=== PATIENT | male | born 1980 | race Caucasian/White ===

== ENCOUNTER 2017-04-13 18:34 | Emergency (ER) | payer OTHER ==
--- NOTE | 2017-04-13 19:20 | CPEKG ---
Heart Rate: 76 RR Interval: 789 P-R Interval: 148 QRSD Interval: 88 QT Interval: 376 QTC Interval: 423 P [place]: 34 QRS [place]: 34 T Wave [place]: 28 EKG Severity - NORMAL ECG - EKG Impression: SINUS RHYTHM Electronically Signed By: Elodia Quezada 13-Apr-2017 21:29:45
--- NOTE | 2017-04-13 19:23 | EDPHY ---
H & P Time Seen by Provider: 04/13/17 19:12 HPI/ROS: CHIEF COMPLAINT: left arm numbness HISTORY OF PRESENT ILLNESS: The patient is a right-handed 36 y/o male complaining of left arm numbness, onset 2 days ago. The left arm numbness has been persistent since onset and mainly involves his 4th and 5th digits. He also had transient discomfort in his left axillary region, which made him concerned about heart disease. No exertional chest or arm discomfort. He is very active and hikes regularly for his job. He also carries a 10 lb pole with his left hand most of the day. His hand is currently numb, primarily in the hand and the pinky. Denies neck pain or injury, hitting his elbow pain radiating down his arm, waking up due to the numbness. No left upper upper extremity weakness or pain. Cardiac risk factors negative. Nonsmoker; no family history; no hypertension, diabetes or hypercholesterolemia. REVIEW OF SYSTEMS: Aside from elements discussed in the HPI, a comprehensive 10-point review of systems was reviewed and is negative. Past Medical/Surgical History: Denies Social History: and son at bedside, works for [employer], smoker Smoking Status: Current some day smoker Physical Exam: General Appearance: Alert, pleasant Eyes: Pupils equal and round, no conjunctival pallor or injection ENT, Mouth: Mucous membranes moist Neck: Normal inspection, no no midline tenderness, no suprascapular tenderness Respiratory: Lungs are clear to auscultation Cardiovascular: Regular rate and rhythm Gastrointestinal: Abdomen is soft and non-tender Neurological: A&O, normal sensation to light touch and pin-prick, motor 5/5 Vascular: 2+ radial pulse Skin: Warm and dry, no rash Extremities: Normal inspection, no tenderness Psychiatric: Mood and affect normal Constitutional: Initial Vital Signs Temperature (C) 37.2 C 04/13/17 18:38 Heart Rate 102 H 04/13/17 18:38 Respiratory Rate 20 04/13/17 18:38 Blood Pressure 151/97 H 04/13/17 18:38 O2 Sat (%) 97 04/13/17 18:38 O2 Delivery Mode Room Air Allergies/Adverse Reactions: No Known Allergies Allergy (Unverified 04/13/17 18:37) Home Medications: Medication Instructions Recorded NK [No Known Home Meds] 04/13/17 Medical Decision Making - Diagnostics EKG Interpretation: EKG interpreted by me reveals normal sinus rhythm with a rate of 76, normal axis , normal intervals, ST and T segments normal. Interpretation: normal EKG Imaging: I viewed and interpreted images myself ED Course/Re-evaluation: The patient is a 36 y/o male presenting with left upper extremity paresthesias. He is mainly concerned about heart disease. EKG reveals no evidence of ischemia or dysrhythmia. I do not suspect cardiac disease in this patient. He has no risk factors for cardiac disease and the numbness in his left upper extremity has been persistent over the last 2 days. No exertional symptoms. Symptoms most consistent with a peripheral nerve injury. Reassessed patient and discussed EKG findings. I have advised him to have a cardiac stress test with his PCP as well as have blood work and his blood pressure evaluated. Return precautions provided; patient is comfortable with this plan. Departure - Departure Disposition: Home, Routine, Self-Care Clinical Impression: Left hand paresthesia Condition: Good Instructions: Paresthesia (ED) Additional Instructions: 1. Your EKG was normal. 2. Follow up with your PCP in the next 72 hours for a cardiac stress test, blood tests, and blood pressure. 3. Return to the ED if you experience fever, chest pain, shortness of breath, increasing pain or other worsening of condition. 4. As we discussed, it is impossible to fully rule out heart disease as the cause of your chest pain in the emergency department. We would be happy to reevaluate you and observe you in the hospital at any time. Referrals: DOBSIN,UNKNOWN [Other] - As per Instructions Report Scribed for: Elodia Quezada Report Scribed by: Savana Garcia Date of Report: 04/13/17 Time of Report: 19:23 Physician Review and Approval Statement: 04/13/17 19:23 Portions of this note were transcribed by a medical transcriber. I personally performed a history, physical exam, medical decision making, and confirmed accuracy of information the transcribed note.
[2017-04-13 20:10] VITALS: BP 139/95; PULSE 80; RESP 16; TEMP 98.2; O2SAT 95
== END 2017-04-13 19:15 | disposition home or self-care (01) ==
DX: R20.2 Paresthesia of skin (principal); F17.200 Nicotine dependence, unspecified, uncomplicated